=== PATIENT | male | born 1955 | race Caucasian/White ===

== ENCOUNTER 2023-10-22 14:03 | Emergency (ER) | payer BC ==
[~2023-10-22] VITALS: Ht 177.8 cm; Wt 79.4 kg
[2023-10-22 14:24] VITALS: O2SAT 97
[2023-10-22] MEDS ORDERED: LIDOCAINE HCL 2% 20 ML VIAL ONE (14:27)
[2023-10-22] MEDS ORDERED: LIDOCAINE HCL 2% 20 ML VIAL TP ONE (14:30)
== END 2023-10-22 15:00 | disposition home or self-care (01) ==
LOC: ER 14:09
DX: S61.512A Laceration without foreign body of left wrist, initial encounter (principal); W26.8XXA Contact with other sharp object(s), not elsewhere classified, initial encounter; Y93.89 Activity, other specified; Y92.89 Other specified places as the place of occurrence of the external cause; Y99.8 Other external cause status
CPT/HCPCS: 12002; 99282; J3490; A4606; A4663